=== PATIENT | female | born 1985 | race Caucasian/White ===

== ENCOUNTER → 2016-09-23 | Outpatient (CLI) | payer BC ==
[~2016-09-23] MED LIST: COD1000C; MTR600X PO; OXYC-57 PO; PRENTAB26 PO
[2016-09-23 13:38] LABS: BASO % 0.3 %; BASO ABS # 0.03 K/uL (0-0.2); COMPLETE YES; EOS % 1.8 %; HEMATOCRIT 38.2 % (37-47); IG% 0.3 %; LYMPH % 20.9 %; LYMPH ABS # 2.42 K/uL (1.2-3.4); MEAN CELL VOLUME 80.4 fL (80-100); MEAN CORPUSCULAR HEMOGLOBIN 27.8 pg (25-34); MEAN CORPUSCULAR HGB CONC 34.6 g/dl (32-36); MEAN PLATELET VOLUME 10.2 fL (7.4-10.4); MONO % 5.3 %; NEUT % 71.4 %; PLATELET COUNT 291 K/uL (130-400); RED BLOOD COUNT 4.75 M/uL (4.2-5.4); WHITE BLOOD COUNT 11.57 K/uL (4.8-10.8)
[2016-09-23 13:49] LABS: URINE APPEARANCE CLEAR (CLEAR); URINE BILIRUBIN NEG (NEG); URINE COLOR YELLOW; URINE NITRITE NEG (NEG); UROBILINOGEN NEG (NEG)
[2016-09-23 13:56] LABS: MANUAL MICROSCOPIC REQUIRED? NO; REVIEW REQ? NO
[2016-09-27 01:40] LABS: CHLAMYDIA TRACH RNA*** NOT DETECTED (NOT DETECTED); GC (NEIS GONORRHOEAE)RNA** NOT DETECTED (NOT DETECTED)
== END | disposition home or self-care (01) ==
LOC: C.LAB1850 12:22
PROVIDERS: ATTEND Obstetrics & Gynecology
DX: Z34.01 Encounter for supervision of normal first pregnancy, first trimester (principal)

== ENCOUNTER → 2016-11-18 | Outpatient (CLI) | payer BC ==
[2016-11-18 18:16] LABS: GTGD 50 Grams
== END | disposition home or self-care (01) ==
LOC: C.LAB1850 15:24
PROVIDERS: ATTEND Obstetrics & Gynecology
DX: Z34.03 Encounter for supervision of normal first pregnancy, third trimester (principal)

== ENCOUNTER → 2017-02-10 | Outpatient (CLI) | payer BC ==
[2017-02-10 17:58] LABS: MANUAL MICROSCOPIC REQUIRED? NO; REVIEW REQ? NO; URINE APPEARANCE CLEAR (CLEAR); URINE BILIRUBIN NEG (NEG); URINE COLOR YELLOW; URINE EPITHELIAL CELL AUTO 0-5 /lpf (0-5); URINE NITRITE NEG (NEG); URINE SPECIFIC GRAVITY 1.007 (1.000-1.030); UROBILINOGEN NEG (NEG)
== END | disposition home or self-care (01) ==
LOC: C.LABSPEC 17:23
PROVIDERS: ATTEND Obstetrics & Gynecology
DX: Z34.03 Encounter for supervision of normal first pregnancy, third trimester (principal)

== ENCOUNTER → 2017-02-10 | Outpatient (CLI) | payer BC ==
[2017-02-10 16:39] LABS: HEMATOCRIT 35.3 % (37-47)
[2017-02-10 18:29] LABS: GTGD 50 Grams
== END | disposition home or self-care (01) ==
LOC: C.LAB1850 15:27
PROVIDERS: ATTEND Obstetrics & Gynecology
DX: Z34.03 Encounter for supervision of normal first pregnancy, third trimester (principal)

== ENCOUNTER → 2017-02-20 | Outpatient (CLI) | payer BC | END | disposition home or self-care (01) | LOC: C.LAB1850 07:05 | PROVIDERS: ATTEND Obstetrics & Gynecology | DX: O28.1 Abnormal biochemical finding on antenatal screening of mother (principal) ==

== ENCOUNTER → 2017-04-07 | Outpatient (CLI) | payer BC | END | disposition home or self-care (01) | LOC: C.LABSPEC 17:28 | PROVIDERS: ATTEND Obstetrics & Gynecology | DX: Z34.03 Encounter for supervision of normal first pregnancy, third trimester (principal) ==

== ENCOUNTER 2017-04-20 04:01 | Inpatient (IN) | payer BC ==
[2017-04-20] VITALS (7 sets, daily range): BP systolic 101–113; BP diastolic 63–72; PULSE 98–101; TEMP 36.5–36.6; O2SAT 95–99; Ht 167.6 cm; Wt 89.8 kg
[~2017-04-20] VITALS: Ht 167.6 cm; Wt 89.8 kg
[2017-04-20] MEDS ORDERED: PRENTAB26 PO (04:22)
[2017-04-20] MEDS ORDERED: COD1000C (04:22)
[2017-04-20] MEDS ORDERED: LACTATED RINGER'S 1000ML 1,000 ML IV SCH ×2 (04:27→16:14)
[2017-04-20 05:30] LABS: HEMATOCRIT 41.5 % (37-47); MEAN CELL VOLUME 81.5 fL (80-100); MEAN CORPUSCULAR HEMOGLOBIN 26.9 pg (25-34); MEAN PLATELET VOLUME 11.3 fL (7.4-10.4); PLATELET COUNT 187 K/uL (130-400); RED BLOOD COUNT 5.09 M/uL (4.2-5.4); WHITE BLOOD COUNT 11.82 K/uL (4.8-10.8)
[2017-04-20] MEDS ORDERED: LACTATED RINGER'S 1000ML 500 ML IV PRN ×3 (06:51→16:03)
[2017-04-20] MEDS: LACTATED RINGER'S 1000ML 1,000 ML IV PRN ×2 (06:56→14:44)
[2017-04-20] MEDS ORDERED: OXYTOCIN 30 UNITS/500ML NSS IV PRN (07:00)
[2017-04-20] MEDS ORDERED: FENTANYL CITRATE INJ 50 MCG/1 ML 2 ML VIAL ONE ×2 (07:36→14:54)
[2017-04-20] MEDS ORDERED: BUPIVACAINE 0.25% 30 ML VIAL ONE (07:36)
[2017-04-20] MEDS ORDERED: FENTANYL 2MCG/ML ROPIV 1.25MG/ML 100ML BAG EPI ONE (07:36)
[2017-04-20] MEDS ORDERED: EpHEDrine SULFATE INJ 50 MG/ML AMP ONE (07:36)
[2017-04-20] MEDS ORDERED: NALOXONE HCL INJ 1 MG in SODIUM CHLORIDE 0.9% 1000ML 1,000 ML IV PRN ×8 (08:21→16:03)
[2017-04-20] MEDS ORDERED: FENTANYL 2MCG/ML ROPIV 1.25MG/ML 100ML BAG EPI PRN (08:30)
[2017-04-20] MEDS ORDERED: PROMETHAZINE HCL INJ 25 MG in SODIUM CHLORIDE 0.9% 50ML 50 ML IV PRN ×5 (08:30→16:15)
[2017-04-20] MEDS ORDERED: NALOXONE HCL INJ 0.4 MG/1 ML VIAL/CARP IV PRN (08:30)
[2017-04-20] MEDS ORDERED: DiphenhydrAMINE HCL 50 MG/ML VIAL IV PRN ×3 (08:30→16:15)
[2017-04-20] MEDS ORDERED: EpHEDrine SULFATE INJ 50 MG/ML AMP IV PRN ×2 (08:30→16:15)
[2017-04-20] MEDS ORDERED: NALBUPHINE HCL INJ 10 MG/ML AMP IV PRN ×2 (08:30→16:15)
[2017-04-20] MEDS ORDERED: ONDANSETRON INJ 2 MG/ML 2 ML VIAL IV PRN ×2 (08:30→16:15)
[2017-04-20] MEDS ORDERED: CITRIC ACID/SODIUM CITRATE 15 ML UDC ONE (14:53)
[2017-04-20] MEDS ORDERED: OXYTOCIN INJ 10 UNITS/ML VIAL ONE ×2 (14:55→15:43)
[2017-04-20] MEDS ORDERED: CITRIC ACID/SODIUM CITRATE 15 ML UDC PO ONE (15:00)
[2017-04-20] MEDS ORDERED: CEFAZOLIN IV 2,000 MG in DEXTROSE 5% 50ML 50 ML IV SCH (15:15)
[2017-04-20] MEDS ORDERED: LIDOCAINE/EPINEPHRINE 2% 1:200,000 20 ML SDV ONE (15:29)
[2017-04-20] MEDS ORDERED: MoRPHine SULFATE PF 1 MG/ML 10 ML AMP/VIAL ONE (15:32)
[2017-04-20] MEDS ORDERED: ONDANSETRON INJ 2 MG/ML 2 ML VIAL ONE (15:39)
[2017-04-20] MEDS ORDERED: PROMETHAZINE HCL INJ 25 MG/ML 1 ML VIAL ONE (15:39)
[2017-04-20] MEDS ORDERED: MIDAZOLAM HCL 1 MG/ML 2ML VIAL ONE (15:41)
[2017-04-20] MEDS ORDERED: PHENYLEPHRINE 100MCG/ML 5ML SYR ONE (15:46)
[2017-04-20] MEDS ORDERED: SODIUM CHLORIDE 0.9% 1000ML 1,000 ML IV PRN (16:03)
[2017-04-20] MEDS ORDERED: NALOXONE HCL INJ 0.08 MG in SYRINGE 1.8 ML IV PRN (16:03)
--- NOTE | 2017-04-20 16:11 | Anesthesia Procedure Note ---
Anesthesia Epidural Removal Nt Date & Time Apr 20, 2017 at 16:11 Vital Signs Pain Intensity: 0.0 Notes Mental Status: alert / awake / arousable, participated in evaluation Nausea / Vomiting: adequately controlled Pain: adequately controlled Airway Patency, RR, SpO2: stable & adequate BP & HR: stable & adequate Hydration State: stable & adequate Neuraxial Anesthesia: was administered Anesthetic Complications: no major complications apparent, pt satisfied with anesthetic care Epidural: removed without complications, with tip intact
--- NOTE | 2017-04-20 16:11 | Anesthesiology Progress Note ---
Anesthesia Post Op Note Date & Time Apr 20, 2017 at 16:11 Vital Signs Pain Intensity: 0.0 Notes Mental Status: alert / awake / arousable, participated in evaluation Pt Amnestic to Procedure: No Nausea / Vomiting: adequately controlled Pain: adequately controlled Airway Patency, RR, SpO2: stable & adequate BP & HR: stable & adequate Hydration State: stable & adequate Neuraxial Anesthesia: was administered, sensory block is resolving Anesthetic Complications: no major complications apparent
[2017-04-20] MEDS ORDERED: NALOXONE HCL 0.4 MG/1 ML VIAL/CARP IV PRN (16:15)
[2017-04-20] MEDS ORDERED: BENZOCAINE 20% AER SPR 82.5 GM CAN EXT PRN (16:15)
[2017-04-20] MEDS ORDERED: SUPERCREAM 0.870 % 15GM JAR EXT PRN (16:15)
[2017-04-20] MEDS ORDERED: NO NARCOTICS OR SEDATIVES SCH (16:15)
[2017-04-20] MEDS ORDERED: MoRPHine SULFATE PF 1 MG/ML 10 ML AMP/VIAL EPI PRN (16:15)
[2017-04-20] MEDS ORDERED: KETOROLAC TROMETHAMINE 30 MG/ML VIAL IV. PRN (16:15)
[2017-04-20] MEDS ORDERED: HYDROCORTISONE ACETATE 25 MG SUPP PR PRN (16:15)
[2017-04-20] MEDS ORDERED: LANOLIN OINT EXT PRN ×2 (16:15)
[2017-04-20] MEDS ORDERED: OXYTOCIN INJ 30 UNITS in LACTATED RINGER'S 1000ML 1,000 ML IV SCH (17:00)
[2017-04-20] MEDS: DOCUSATE SODIUM 100 MG CAP PO SCH (20:46)
[2017-04-20] MEDS: SIMETHICONE 80 MG CHEW PO SCH (20:46)
[2017-04-21] VITALS (13 sets, daily range): BP systolic 95–104; BP diastolic 59–68; PULSE 94–102; TEMP 36.7–37; O2SAT 96–99
--- NOTE | 2017-04-21 00:03 | OPERATIVE REPORT ---
DATE OF OPERATION: 04/20/2017 PREOPERATIVE DIAGNOSES: 1. Zaman intrauterine at 38 and 3/7 weeks. 2. Premature rupture of membranes with induction of labor. 3. Failure to descend. 4. Group B strep negative. 5. Difficult extraction. POSTOPERATIVE DIAGNOSES: Same. PROCEDURE: Primary low transverse section with vertical extension to a T incision and a left cervical extension. SURGEON: Janessa Holbrook MD. ASSIST: MS3 and RN Dulce Vazquez. ESTIMATED BLOOD LOSS: 700 FINDINGS: in direct occiput posterior position with a fundal posterior placenta. Ovaries normal bilaterally. Approximately 3-4 cm paratubal cyst on the left which was drained of clear fluid. SPECIMEN: Cord blood, placenta. COMPLICATIONS: None. DISPOSITION: Stable to the recovery room. DESCRIPTION: Fang is a 31-year-old G1, P0 who was admitted by my partner Dr. Cates with premature rupture of membranes and slow onset of labor, requiring augmentation with Pitocin. The patient reached complete dilation with an urge to push and was coached through her second stage. Despite 3 hours of exceptional maternal pushing effort, the patient was unable to bring the head down below +1 station, and on exam after 3 hours of pushing, it was very easy to displace the head upward, out of the pelvis. The patient elected to proceed to delivery for failure to descend with suspected CPD and malpresentation. The patient was brought to the operating room, placed on the table in the supine position with a leftward tilt, prepped and draped in standard sterile fashion, and a hard timeout was taken prior to proceeding. A Pfannenstiel incision was created and carried sharply down to the fascia which was carried out laterally with Pacheco scissors. The fascia was elevated using Pema clamps and sharply and bluntly dissected off the underlying rectus. The midline of the rectus was bluntly and the peritoneum was bluntly entered. This entry point was then extended using lateral pressure from the surgeon's hand. A bladder blade was introduced and a bladder flap was created. A lower uterine transverse incision was then made. As the fetus was in the direct occiput posterior presentation, the hands and arms were directly under the hysterotomy and these immediately presented through the hysterotomy. These were gently replaced in the uterus and my hand was introduced down over the head; however, as the arms continued to return to protruding through the hysterotomy, elevation of the head was difficult. A nurse with a sterile glove was introduced from below to put upward pressure on the head through the vagina; however, we remained unable to displace the head upward sufficiently to allow delivery of the head through the hysterotomy. For this reason, I then changed my approach and used bandage scissors to create a uterine T incision and then grasped both feet. The feet were delivered through the hysterotomy, followed by the sacrum while I used my right hand to gently guide the head upward into the fundus effectively creating an internal podalic version and delivering the fetus in a breech extraction manner. Once the fetus was delivered, the cord was doubly clamped and cut. With just a few breaths worth of resuscitation, the then began to make spontaneous crying and respirations and was noted to move all 4 extremities. Apgars of 8 and 9 were ultimately assigned. The cord was clamped to create suction for extracting cord gases and the placenta was then removed manually. The uterus was exteriorized and cleared of all clot and debris with a dry lap sponge. The bladder retractor was then re-placed. The angles of the hysterotomy and the vertical incision were identified with Allis clamps and a left cervical extension was identified. Repair began by closure of the left cervical extension using 0 Vicryl suture in a running locked manner. The vertical extension was then closed using 0 Vicryl suture in a running locked manner and what remained was then a standard transverse hysterotomy which was then closed in the usual running locked manner with Vicryl suture. A small hematoma was noted at the left angle and a [id number] of Vicryl was placed to compress this with success. The uterus was then flexed forward and irrigation was carried out in the posterior cul-de-sac. The ovaries were noted to be normal. There was a 4 cm clear filled paratubal cyst on the left side which was lanced and drained of fluid to decompress. The uterus was then re-placed into the abdomen. The lateral gutters were cleared of clot and debris gently. Attention was then returned to the hysterotomy which having been allowed to sit for several minutes as the gutters were cleared, showed itself to be hemostatic without re-formation of the hematoma. Satisfied that the uterine repair was complete, I removed all instruments, grasped the angle of the fascia with the Peam and repaired the fascial opening using 1 Vicryl suture in a running nonlocked manner. At the completion of fascial closure, the fascia was examined and found to be free of any defect. The subcutaneous tissue was copiously irrigated and gently reapproximated using 3-0 chromic suture. The skin was closed using 4-0 Monocryl and a Dermabond dressing was applied. The Tariq was noted to be draining blood stained urine at the end of the procedure. Of note, the bladder was clearly identified and well mobilized inferior to the working sites, and I feel confident that the blood stained urine is due to lower uterine segment trauma from the attempts to deliver this child and does not represent a sharp or direct bladder injury. The patient is currently in her recovery room having tolerated the procedure well. I attest to the content of the Intraoperative Record and any orders documented therein. Any exception s are noted below.
--- NOTE | 2017-04-21 06:43 | Medical Student: [facility] ---
Med Student DELI MANAGER Progress Nt Date of Service Apr 21, 2017. Subjective conversation w/ patient Ambulation: limited ambulation (has not gotten out of bed yet) Voiding: mcdonough catheter in place Passing Gas: No Diet Tolerance: Clear Liquids Lochia: Small Feeding Type: Breast Feeding Notes: Toradol for pain control Review of Systems Constitutional: No fever, No chills Respiratory: No cough, No shortness of breath Cardiac: No chest pain Abdomen: No pain, No nausea, No vomiting Objective Vital Signs Date Time Temp Pulse Resp B/P (MAP) Pulse Ox O2 Delivery O2 Flow Rate FiO2 04/21/17 05:30 17 96 04/21/17 04:40 36.7 102 18 104/62 (76) Room Air 04/21/17 04:30 17 98 04/21/17 03:30 18 98 04/21/17 02:30 17 98 04/21/17 01:30 17 97 04/21/17 00:30 17 98 04/20/17 23:50 98 Room Air 04/20/17 23:50 36.6 101 18 113/72 (86) 98 Room Air 04/20/17 23:30 20 99 04/20/17 22:30 18 96 04/20/17 21:30 18 96 04/20/17 20:30 18 95 04/20/17 19:40 36.5 98 20 101/63 (76) 97 Room Air 04/20/17 19:30 20 97 Physical Exam General Appearance: WELL-APPEARING, WD/WN, NO APPARENT DISTRESS Respiratory/Chest: chest non-tender, lungs clear, normal breath sounds, no respiratory distress Cardiovascular: regular rate, rhythm Abdomen: non tender, soft Fundus: Firm, Non-Tender, Relation to Umbilicus (at umbilicus) Incision Description: Clean, Dry & Intact Extremities: non-tender, no calf tenderness, + pedal edema still has compression device on for DVT prophylaxis Laboratory Results Last 24 Hours Test 04/21/17 06:00 Assessment and Plan Post-Op Day Number: 1 Continue Routine Care: pt is a 31 yo F POP#1 s/p section - vitals reviewed and stable - continue providing routine post c/s care - pre-op hgb 13.7, post-op hgb pending. continue to monitor for bleeding - encourage and ambulation - pain controlled wit Toradol
[2017-04-21] MEDS ORDERED: DIPHTHERIA/TETANUS/PERTUSSIS 0.5 ML SYR/VIAL IM. ONE (08:00)
--- NOTE | 2017-04-21 08:02 | Progress Note ---
Subjective Apr 21, 2017. Subjective conversation w/ patient, physical exam Ambulation: ambulating normally Voiding: mcdonough catheter in place Passing Gas: Yes Diet Tolerance: Regular Diet Lochia: Moderate Feeding Type: Breast Feeding Review of Systems Constitutional: No fever, No chills Cardiac: No chest pain Abdomen: No nausea, No vomiting Objective Vital Signs Date Time Temp Pulse Resp B/P (MAP) Pulse Ox O2 Delivery O2 Flow Rate FiO2 04/21/17 07:35 37.0 94 16 95/59 (71) 97 Room Air 04/21/17 06:30 17 98 04/21/17 05:30 17 96 04/21/17 04:40 36.7 102 18 104/62 (76) Room Air 04/21/17 04:30 17 98 04/21/17 03:30 18 98 04/21/17 02:30 17 98 04/21/17 01:30 17 97 04/21/17 00:30 17 98 04/20/17 23:50 98 Room Air 04/20/17 23:50 36.6 101 18 113/72 (86) 98 Room Air 04/20/17 23:30 20 99 04/20/17 22:30 18 96 04/20/17 21:30 18 96 04/20/17 20:30 18 95 04/20/17 19:40 36.5 98 20 101/63 (76) 97 Room Air 04/20/17 19:30 20 97 Physical Exam General Appearance: WELL-APPEARING, NO APPARENT DISTRESS Respiratory/Chest: no respiratory distress, no accessory muscle use Cardiovascular: no edema Abdomen: non tender, soft Fundus: Firm Incision Description: Clean, Dry & Intact Extremities: no calf tenderness Laboratory Results Last 24 Hours Test 04/21/17 06:57 Assessment and Plan Post-Op Day#: 1 Continue Routine Care: POD1 with T-incision for FTD. Incision discussed with patient this morning including that she will not be a candidate in the future. She expresses understanding. Clinically recovering well, routine care today.
[2017-04-21] MEDS: DOCUSATE SODIUM 100 MG CAP PO SCH ×2 (08:31→19:30)
[2017-04-21] MEDS: SIMETHICONE 80 MG CHEW PO SCH ×4 (08:31→19:31)
[2017-04-21] MEDS: PRENATAL VITAMIN TAB PO SCH (08:31)
[2017-04-21 08:43] LABS: BASO % 0.2 %; BASO ABS # 0.02 K/uL (0-0.2); COMPLETE YES; EOS % 0.6 %; HEMATOCRIT 29.4 % (37-47); IG% 0.3 %; LYMPH % 17.8 %; MEAN CELL VOLUME 82.4 fL (80-100); MEAN CORPUSCULAR HEMOGLOBIN 27.2 pg (25-34); MONO % 8.3 %; NEUT % 72.8 %; PLATELET COUNT 114 K/uL (130-400); RED BLOOD COUNT 3.57 M/uL (4.2-5.4); WHITE BLOOD COUNT 12.35 K/uL (4.8-10.8)
[2017-04-21] MEDS ORDERED: DC INTRASPINAL MORPHINE SCH (10:30)
[2017-04-21] MEDS ORDERED: OXYCODONE/ACETAMINOPHEN 5-325 TAB PO PRN (10:30)
[2017-04-21] MEDS ORDERED: MEPERIDINE HCL 50 MG/ML CARP IV PRN ×2 (10:30)
[2017-04-21] MEDS ORDERED: KETOROLAC TROMETHAMINE 30 MG/ML VIAL IV. PRN (10:30)
[2017-04-21] MEDS ORDERED: ONDANSETRON INJ 2 MG/ML 2 ML VIAL IV PRN (10:30)
[2017-04-21] MEDS: OXYCODONE/ACETAMINOPHEN 5-325 TAB PO PRN ×2 (14:02→20:18)
[2017-04-21] MEDS: IBUPROFEN 600 MG TAB PO PRN ×2 (14:02→20:17)
--- NOTE | 2017-04-22 05:58 | OB/GYN Progress Note ---
P[employer]EL[employer]ER Progress Note Date of Service Apr 22, 2017. Subjective conversation w/ patient, physical exam, chart review, lab review Ambulation: ambulating normally Voiding: no voiding problems Passing Gas: Yes Diet Tolerance: Regular Diet Lochia: Moderate Feeding Type: Breast Feeding Pain: 3-4 controlled with pain meds Review of Systems Constitutional: No fever Respiratory: No shortness of breath Cardiac: No chest pain Breast: No problem reported Abdomen: No nausea, No vomiting Female : No dysuria Objective Vital Signs Date Time Temp Pulse Resp B/P (MAP) Pulse Ox O2 Delivery O2 Flow Rate FiO2 04/21/17 23:20 Room Air 04/21/17 15:30 Room Air 04/21/17 11:45 36.8 98 20 104/68 (80) 97 Room Air 04/21/17 10:00 16 98 04/21/17 09:00 16 99 04/21/17 08:00 16 99 04/21/17 08:00 99 Room Air 04/21/17 07:35 37.0 94 16 95/59 (71) 97 Room Air 04/21/17 06:30 17 98 Physical Exam General Appearance: WELL-APPEARING Respiratory/Chest: lungs clear, normal breath sounds, no respiratory distress Cardiovascular: regular rate, rhythm Abdomen: normal bowel sounds, non tender, soft Fundus: Firm, Relation to Umbilicus (3 finger breaths below) Incision Description: Clean, Dry & Intact Extremities: non-tender, normal inspection, no pedal edema Laboratory Results Last 24 Hours Test 04/21/17 06:57 White Blood Count 12.35 K/uL Red Blood Count 3.57 M/uL Hemoglobin 9.7 g/dL Hematocrit 29.4 % Mean Corpuscular Volume 82.4 fL Mean Corpuscular Hemoglobin 27.2 pg Mean Corpuscular Hemoglobin Concent 33.0 g/dl Platelet Count 114 K/uL Mean Platelet Volume 11.0 fL Neutrophils (%) (Auto) 72.8 % Lymphocytes (%) (Auto) 17.8 % Monocytes (%) (Auto) 8.3 % Eosinophils (%) (Auto) 0.6 % Basophils (%) (Auto) 0.2 % Neutrophils # (Auto) 8.99 K/uL Lymphocytes # (Auto) 2.20 K/uL Monocytes # (Auto) 1.03 K/uL Eosinophils # (Auto) 0.07 K/uL Basophils # (Auto) 0.02 K/uL RDW Standard Deviation 44.2 fL RDW Coefficient of Variation 14.7 % Immature Granulocyte % (Auto) 0.3 % Immature Granulocyte # (Auto) 0.04 K/uL Medications Current Inpatient Medications Medications (Trade) Dose Ordered Sig/Abhi Route Start Time Stop Time Status Last Admin Dose Admin Oxytocin (Pitocin IV) 30 units UD PRN IV 04/20/17 07:00 05/20/17 06:59 04/20/17 07:22 30 UNITS Lactated Ringer's 500 ml @ 999 mls/hr Q31M PRN IV 04/20/17 06:51 05/20/17 06:50 Lactated Ringer's 1,000 ml @ 125 mls/hr Q8H IV 04/20/17 16:14 05/20/17 16:13 Ketorolac Tromethamine (Toradol Inj) 30 mg Q6H PRN IV. 04/21/17 10:30 04/25/17 10:29 Meperidine HCl (Demerol Inj) 50 mg Q4H PRN IV 04/21/17 10:30 05/05/17 10:29 Meperidine HCl (Demerol Inj) 75 mg Q4H PRN IV 04/21/17 10:30 05/05/17 10:29 Oxycodone/ Acetaminophen (Percocet 5-325mg Tab) 1 tab Q4H PRN PO 04/21/17 10:30 05/05/17 10:29 04/21/17 20:18 1 TAB Oxycodone/ Acetaminophen (Percocet 5-325mg Tab) 2 tab Q4H PRN PO 04/21/17 10:30 05/05/17 10:29 Ibuprofen (Motrin Tab) 600 mg Q4H PRN PO 04/20/17 16:15 05/20/17 16:14 04/21/17 20:17 600 MG Promethazine HCl 25 mg/Sodium Chloride 51 ml @ 204 mls/hr Q4H PRN IV 04/20/17 16:15 05/20/17 16:14 Ondansetron HCl (Zofran Inj) 4 mg Q4H PRN IV 04/21/17 10:30 05/21/17 10:29 Prenat Multivit/ Staff Midwife/Iron/Folic Ac ( Vitamin Tab) 1 tab DAILY PO 04/21/17 08:00 05/21/17 07:59 04/21/17 08:31 1 TAB Docusate Sodium (coLACE CAP) 100 mg BID PO 04/20/17 20:00 05/20/17 19:59 04/21/17 19:30 100 MG Cocaine HCl (Supercream 0.870% Cr) BID PRN EXT 04/20/17 16:15 05/04/17 16:14 Lanolin (Lanolin Oint) PRN PRN EXT 04/20/17 16:15 05/20/17 16:14 Hydrocortisone Acetate (Anusol Hc Supp) 25 mg BID PRN AR 04/20/17 16:15 05/20/17 16:14 Benzocaine (Dermoplast Aero Spr) 1 appln PRN PRN EXT 04/20/17 16:15 05/20/17 16:14 Simethicone (Mylicon Chew Tab) 80 mg QID PO 04/20/17 17:00 05/20/17 16:59 04/21/17 19:31 80 MG Diphenhydramine HCl (Benadryl Cap) 25 mg QID PRN PO 04/20/17 16:15 05/20/17 16:14 Diphenhydramine HCl (Benadryl Inj) 25 mg QID PRN IV 04/20/17 16:15 05/20/17 16:14 Assessment and Plan Post-Op Day Number: 2 Continue Routine Care: A/P: This is a 31 y/o female, , POD# 2 s/p with T incision for FTD. She is ambulating and clinically stable. Plan: - Vitals signs are reviewed and WNL (Tmax 36.8 ) - Last Hgb is 9.7 (04/21) - Blood type A+, GBS neg, Rubella Immune - Routine post operative care - Encourage ambulation, monitor and control pain with medication as needed, continue with regular diet as tolerated and monitor lochia - Stool softeners and sitz bath recommended - Encourage breast feeding and educate about breast feeding Resident Physician Supervision Note: I was present with Dr. Gandara during the history and exam. I discussed the case with the resident and agree with the findings and plan as documented in the note. Any exceptions or clarifications are listed here: POD#2 doing well. Continue routine postop care. Anticipate discharge tomorrow. Documented By: Doreen Mcgowan Resident Involvement: Resident Care Provided Care Provided: OB Delivery
[2017-04-22] MEDS: IBUPROFEN 600 MG TAB PO PRN ×3 (07:49→23:56)
[2017-04-22] MEDS: SIMETHICONE 80 MG CHEW PO SCH ×4 (07:50→21:33)
[2017-04-22] MEDS: OXYCODONE/ACETAMINOPHEN 5-325 TAB PO PRN ×3 (07:50→23:56)
[2017-04-22] MEDS: PRENATAL VITAMIN TAB PO SCH (07:50)
[2017-04-22] MEDS: DOCUSATE SODIUM 100 MG CAP PO SCH ×2 (07:52→21:33)
--- NOTE | 2017-04-22 08:00 | Discharge Instructions ---
Discharge Instructions Date of Service Apr 22, 2017. Admission Reason for Admission: Check Labor Discharge Discharge Diagnosis / Problem: after delivery Discharge Goals Goal(s): Routine recovery after delivery Medications Continue Dispensed Medications: supercream, dermaplast, tucks, lansinoh Activity Recommendations Activity Limitations: per Instructions/Follow-up section . Instructions / Follow-Up Instructions / Follow-Up ACTIVITY RECOMMENDATIONS: * Gradual return to full activity over the next 2-3 weeks. * No lifting - nothing heavier than baby over the next 2-3 weeks. * Do not engage in vigorous exercise, sexual activity or sports until cleared by your physician. * Do not drive or operate any motorized equipment until cleared by your physician. * You may shower/bathe daily. MEDICATIONS: For discomfort or pain, you may use Acetaminophen (Tylenol), Ibuprofen (Advil), or Naproxen (Aleve) following the package directions. For constipation you may use Colace following the package directions. BREAST CARE: If you are not breast feeding: * Wear a supportive bra 24 hours a day for one to two weeks. * Avoid stimulating your breasts and nipples as much as possible during the first few weeks after delivery. * When taking a shower, have the warm water hit your back, not breasts. * When your breasts feel full, apply ice packs. Usually three to four times a day helps ease the discomfort. * Take a mild pain medication (Tylenol / Motrin) when you are uncomfortable. If breast feeding: * Use breast milk to lubricate nipples. Lansinoh cream may be used for sore nipples. You do not need to remove cream prior to breast feeding. If using a different brand of cream, check the label for directions regarding removal of cream prior to nursing. * Wear a supportive bra. * If having problems with breasts or breast feeding, call a bridal stylist sales consultant or your health care provider. SPECIAL CARE INSTRUCTIONS: When you are discharged from the hospital, it is important for you to follow the instructions listed below: * During the first week at home, you should be able to care for yourself and your baby. In addition, the usual light household activities are encouraged. * Limit your activities to the way you feel. Do not try to clean the house or move furniture. Be sensible. * If you actively engage in sports and have done so up until the time of your delivery, you may resume these activities as soon as you feel able. This may take up to one month or even longer. Use good judgment. * Continue to take your vitamins for at least six weeks after the of your baby. * Your diet need not be limited unless you were on a special diet before your delivery. Breast-feeding mothers need around 2500 calories per day and at least 64-80 ounces of fluid per day (8 to 10 glasses). * You should eat foods from the four major food groups. Crash diets or fad diets are to be avoided. Eating lean meats, fresh fruits and vegetables, low-fat dairy products, high fiber foods and a regular exercise program, will help you get back to your pre- weight without putting your health at risk. * Constipation is sometimes a problem after delivery. Take a mild laxative as needed. If breast feeding, Milk of Magnesia is acceptable to use. You may use a suppository or Fleets enema. * A daily shower or tub bath is suggested. Wash incision daily with warm soapy water and pat dry. It doesn't need to be covered unless drainage is present. * A bloody vaginal discharge will usually continue until around four weeks . A small amount of bleeding may continue for as long as six weeks. Vaginal discharge changes from the bright red bleeding after delivery to pink then brownish and finally yellowish-pink before becoming white and disappearing. * Bleeding may increase with activity. Your first period may come in 4-8 weeks. If you are breast feeding, your period may be delayed even longer. * Pelzer (sex) can begin whenever both you and your partner feel comfortable and do not have any form of genital infection. It is recommended that you wait at least six weeks for internal and external healing to occur. If you have questions, please talk to your health care practitioner. A condom should be used to prevent infection and . * Foreplay, gentle intercourse and lubrication is very important the first several times to prevent pain. A water-based lubricant such as K-Y jelly or Astroglide may be used. * If you have RH negative blood and your baby is RH positive, you will receive RHOGAM by injection prior to discharge. The nurse will give you a card to keep with you that has the date and place that you received RHOGAM after delivery. * During your care, you had a Rubella screen done to check for the presence of rubella antibodies in your blood. If your test was negative, you will receive a Rubella vaccine prior to discharge. This vaccine may cause a fever, soreness at the injection site and flu-like symptoms. If these symptoms persist, notify your health care practitioner. is not advised for one month after a Rubella vaccine. * Verbalizes understanding of car seat law as reviewed with patient nursing. * Car Seat hand-out given and reviewed with patient by nursing. * Shaken baby information reviewed with patient by nursing. Call you doctor if: * Heavy bleeding (saturating several pads an hour) or passing clots the size of your fist. * A fever >101 degrees F (38.3 degrees C) on two occasions four hours apart and /or chills. * Unusual pain in the pelvic or vaginal areas. * Call the doctor for any increased redness, drainage or swelling around the incision and any pain unrelieved by prescribed pain medication. * "Baby Blues" lasting longer than two weeks. If you have any questions or concerns, call your health care practitioner at . FOLLOW UP VISIT: * Please call the office at to schedule a 6 week examination. It is important you keep this appointment. It is important for you to make arrangements for either yearly or twice yearly check-ups thereafter. Current Hospital Diet Patient's current hospital diet: Regular OB Diet Discharge Diet Recommended Diet: Regular Diet Procedures Procedures Performed: Primary ceasearen section with the of a live male child at 1523. Pending Studies Studies pending at discharge: no Medical Emergencies . Who to Call and When: Medical Emergencies: If at any time you feel your situation is an emergency, please call [phone] immediately. . Non-Emergent Contact Non-Emergency issues call your: [facility] . . "Provider Documentation" section prepared by Moises Gandara. . VTE Core Measure Inpt VTE Proph given/why not?: SCD's
[2017-04-22 15:30] VITALS: BP 125/83; PULSE 80; TEMP 36.6
[2017-04-22 23:45] VITALS: BP 120/76; PULSE 94; TEMP 36.7
[2017-04-23 07:30] VITALS: BP 103/68; PULSE 93; TEMP 36.7
[2017-04-23] MEDS: SIMETHICONE 80 MG CHEW PO SCH (08:26)
[2017-04-23] MEDS: DOCUSATE SODIUM 100 MG CAP PO SCH (08:26)
[2017-04-23] MEDS: PRENATAL VITAMIN TAB PO SCH (08:26)
--- NOTE | 2017-04-23 08:30 | Progress Note ---
Subjective Apr 23, 2017. Subjective conversation w/ patient, physical exam, chart review, lab review Voiding: no voiding problems Diet Tolerance: Regular Diet Feeding Type: Breast Feeding Objective Vital Signs Date Time Temp Pulse Resp B/P (MAP) Pulse Ox O2 Delivery O2 Flow Rate FiO2 04/22/17 23:45 Room Air 04/22/17 23:45 36.7 94 18 120/76 (91) Room Air 04/22/17 15:30 36.6 80 20 125/83 (97) Room Air 04/22/17 15:30 Room Air Physical Exam General Appearance: WELL-APPEARING Respiratory/Chest: lungs clear Abdomen: non tender Fundus: Firm Incision Description: Clean, Dry & Intact Extremities: no calf tenderness Assessment and Plan Post-Op Day#: 3 Continue Routine Care: home
[2017-04-23] MEDS ORDERED: MTR600X PO (08:31)
[2017-04-23] MEDS ORDERED: OXYC-57 PO (08:31)
[2017-04-23] MEDS: IBUPROFEN 600 MG TAB PO PRN (09:39)
[2017-04-23] MEDS: OXYCODONE/ACETAMINOPHEN 5-325 TAB PO PRN (09:39)
[2017-04-23 13:54] VITALS: BP_DIAS 68; PULSE 93; TEMP 36.7
--- NOTE | 2017-05-04 20:57 | Discharge Summary ---
Discharge Summary Date of Service May 04, 2017. Discharge Summary Admission Date: Apr 20, 2017 at 04:33 Discharge Date: Apr 23, 2017 Discharge Disposition: Home Principal Diagnosis: Delivery of viable infant Medication Reconciliation New Medications: Ibuprofen (Ibuprofen) 600 Mg Tab 600 MG PO Q4H PRN for Pain, NAVARRETE, Cramping, or Fever, #20 TAB Oxycodone/Acetaminophen 5MG/325MG (Percocet 5MG/325MG) Tab 1 TAB PO Q4H PRN for Pain - Pain Scale 1-5, #30 TAB PAIN Continued Medications: Cod Liver Oil (Cod Liver Oil 1000 mg) 1 Cap Cap Multivit/Min/Iron/Fol Ac/Pren ( Vitamin) Tab 1 TAB PO DAILY, TAB None (Patient States No Home Meds) . 0 Refills Hospital Course Total Time Spent: Less than 30 minutes This includes examination of the patient, discharge planning, medication reconciliation, and communication with other providers. Discharge Instructions Please refer to the electronic Patient Visit Report (Discharge Instructions) for additional information.
== END 2017-04-23 13:45 | disposition home health service (06) | DRG 766 ==
LOC: C.OPB 04:01 → C.LD 04:01 → C.OPB 04:33 → C.OBG 18:42
PROVIDERS: ADMIT Obstetrics & Gynecology; ATTEND Obstetrics & Gynecology
PROC: 0U960ZZ Drainage of Left Fallopian Tube, Open Approach (ICD-10-PCS; principal; 2017-04-20 14:52)
PROC: 10D00Z1 Extraction of Products of Conception, Low, Open Approach (ICD-10-PCS; principal; 2017-04-20 14:52)
DX: O42.02 Full-term premature rupture of membranes, onset of labor within 24 hours of rupture (principal); Z37.0 Single live birth; Z3A.38 38 weeks gestation of pregnancy; N83.8 Other noninflammatory disorders of ovary, fallopian tube and broad ligament; O66.40 Failed trial of labor, unspecified; O26.893 Other specified pregnancy related conditions, third trimester

== ENCOUNTER → 2017-06-06 | Outpatient (CLI) | payer BC | END | disposition home or self-care (01) | LOC: C.LAB1850 08:14 | PROVIDERS: ATTEND Obstetrics & Gynecology | DX: O24.410 Gestational diabetes mellitus in pregnancy, diet controlled (principal); Z3A.00 Weeks of gestation of pregnancy not specified ==

== ENCOUNTER 2020-08-03 07:32 | Inpatient (IN) ==
[~2020-08-03 07:32] MED LIST changes: +BETAMETH SOD PHOS/ACETATE IA 6 MG/ML ONE; +CITRIC ACID/SODIUM CITRATE 15 ML UDC PO SCH; -COD1000C; +LACTATED RINGER'S 1,000 ML IV SCH; -MTR600X PO; -OXYC-57 PO; -PRENTAB26 PO; +ceFAZolin 3,000 MG in DEXTROSE 5% 50 ML IV SCH
[2020-08-03 07:56] LABS: Basophils # (auto) 0.01 K/uL (0-0.2); Basophils % (auto) 0.1 %; Eosinophils # (auto) 0.01 K/uL (0-0.5); Eosinophils % (auto) 0.1 %; Hematocrit (blood only) 36.8 % (37-47); Hemoglobin 11.7 g/dL (12.0-16.0); Immature Granulocytes # (auto) 0.29 K/uL (0.00-0.02); Immature Granulocytes % (auto) 1.9 %; Lymphocytes # (auto) 2.07 K/uL (1.2-3.4); Lymphocytes % (auto) 13.5 %; Mean Corpuscular Hemoglobin 26.8 pg (25-34); Mean Corpuscular Hgb Conc 31.8 g/dL (32-36); Mean Corpuscular Volume 84.2 fL (80-100); Mean Platelet Volume 10.5 fL (7.4-10.4); Monocytes # (auto) 0.92 K/uL (0.11-0.59); Neutrophils % (auto) 78.4 %; Nucleated RBC # (auto) 0.02 K/uL (0-0); Nucleated RBC % (auto) 0.1 %; Platelet Count 192 K/uL (130-400); RDW Coefficient of Variation 14.4 % (11.5-14.5); RDW Standard Deviation 43.9 fL (36.4-46.3); Red Blood Count 4.37 M/uL (4.2-5.4)
--- NOTE | 2020-08-03 08:30 | Anesthesiology Consultation ---
Date of Service August 03, 2020 Assessment & Plan (1) Encounter for pre-operative examination: Chart Review Chart Review: Acceptable Risk for Surgery History Surgery Operation Date: 08/03/20 09:30 Proposed Procedures p Section in LD - Janessa Holbrook MD Height/Weight Height: 5 ft 6 in Weight: 90.718 kg Allergies Allergy/AdvReac Type Severity Reaction Status Date / Time mold Allergy Mild sinus Verified 07/31/20 08:54 congestion ragweed pollen Allergy Mild sinus Verified 07/31/20 08:54 congestion Dust Allergy Mild sinus Uncoded 07/29/20 15:45 congestion Medications Home Medications Medication Instructions Recorded Confirmed Last Taken prenat.vits,victor hugo,[id number] 1 tab PO QAM 10/24/19 07/31/20 Unknown acetone (urine) test #50 ea 03/18/20 07/31/20 Unknown blood sugar diagnostic #150 ea 03/18/20 07/31/20 Unknown lancets 33 gauge #150 ea 03/18/20 07/31/20 Unknown omega-3 fatty acids-fish oil [Fish 1 cap PO QAM 07/29/20 07/31/20 Unknown Oil Extra Strength] Past Medical History Medical History Asthma as a child. no problems currently Gestational diabetes managed by diet Spontaneous at 7 weeks Past Family History Family History Father Colorectal cancer Grandfather (Paternal) Colorectal cancer Other No family history of adverse response to anesthesia Past Surgical History Surgical History S/P section Social History Smoking Status: Never smoker Do You Dip or Chew Tobacco: No Hx Alcohol Use: No Hx Substance Use: No substance use type: does not use Physical Exam Vital Signs Last Vital Signs Pulse 102 H 08/03/20 07:52 BP 115/60 08/03/20 07:52 Testing Laboratory Results 08/03/20 07:41
[2020-08-03] MEDS ORDERED: MoRPHine SULFATE PF 1 MG/ML 10 ML AMP/VIAL ONE (08:37)
--- NOTE | 2020-08-03 10:52 | History & Physical Bridge Note ---
Date of Service August 03, 2020 History & Physical Bridge Note I have examined the patient, reviewed the History & Physical and in the interval since the performance of the History & Physical I have noted the following changes of clinical significance: no changes noted
[2020-08-03] MEDS ORDERED: ONDANSETRON INJ 2 MG/ML 2 ML VIAL ONE (10:55)
[2020-08-03] MEDS ORDERED: PROPOFOL IV EMULSION 10 MG/ML 20 ML VIAL IV ONE (10:55)
[2020-08-03] MEDS ORDERED: METOCLOPRAMIDE HCL INJ 5 MG/ML 2 ML VIAL ONE (10:55)
[2020-08-03] MEDS ORDERED: OXYTOCIN 10 UNITS/ML VIAL ONE (10:55)
[2020-08-03] MEDS ORDERED: ePHEDrine sulfate 50 MG/ML SYR ONE (12:31)
[2020-08-03] MEDS ORDERED: PHENYLEPHRINE 100MCG/ML 5ML SYR ONE (12:37)
[2020-08-03] MEDS ORDERED: ePHEDrine sulfate 50 MG/ML AMP IV PRN (12:41)
[2020-08-03] MEDS ORDERED: NALOXONE HCL 1 MG in SODIUM CHLORIDE 0.9% 1000ML 1,000 ML IV PRN (12:41)
[2020-08-03] MEDS ORDERED: LACTATED RINGER'S 500 ML IV PRN (12:41)
[2020-08-03] MEDS ORDERED: PROMETHAZINE HCL 12.5 MG in SODIUM CHLORIDE 0.9% 50 ML IV PRN (12:41)
[2020-08-03] MEDS ORDERED: MoRPHine SULFATE PF 1 MG/ML 10 ML AMP/VIAL INT SPINAL ONE (12:41)
[2020-08-03] MEDS ORDERED: NALOXONE HCL 0.08 MG in SYRINGE 1.8 ML IV PRN (12:41)
[2020-08-03] MEDS ORDERED: KETOROLAC 30 MG/ML VIAL IV PRN (12:41)
[2020-08-03] MEDS ORDERED: diphenhydrAMINE 50 MG/ML VIAL IV PRN (12:41)
[2020-08-03] MEDS ORDERED: MEPERIDINE HCL 25 MG/ML CARP/VIAL IV PRN (12:41)
[2020-08-03] MEDS ORDERED: ONDANSETRON INJ 2 MG/ML 2 ML VIAL IV PRN ×2 (12:41→15:06)
[2020-08-03] MEDS ORDERED: NALOXONE HCL 0.4 MG/1 ML VIAL/CARP IV PRN (12:41)
[2020-08-03] MEDS ORDERED: NO NARCOTICS OR SEDATIVES SCH (12:45)
[2020-08-03] MEDS ORDERED: SODIUM CHLORIDE 0.9% 1000ML 1,000 ML IV SCH (12:45)
[2020-08-03] MEDS ORDERED: DC INTRASPINAL MORPHINE SCH (12:45)
--- NOTE | 2020-08-03 13:14 | Operative Report ---
PG Post Operative Report Pre & Post Diagnosis Operation Date: 08/03/20 09:30 Pre-Op Diagnosis: 1. IUP at 36+ weeks 2. Previous section with T incision Post-Op Diagnosis: Same I identified the patient and participated in the time-out.: Yes Procedure Operation Date: 08/03/20 09:30 Actual Procedures p Low Transverse Section in LD with the of a live male child at 1242. - Janessa Holbrook MD Surgeon Janessa Holbrook MD Medical Data Analyst Roslyn GRIMES Estimated Blood Loss 500 Findings Consistent with Post-Op Diagnosis Specimens Placenta, cord blood Anesthesia Type Spinal Complications none Disposition Accompanied Patient To Recovery: Yes Disposition: L&D Description of Procedure The patient was brought to the operating room and placed on the table in the supine position with a leftward tilt, then prepped and draped in standard sterile fashion. A hard time out was taken prior to proceeding. A pfannensteil incision was created sharply and carried down to the fascia using bovie electrocautery. The fascia was nicked and then extended using stein scissors. The edges of the fascia were grasped with Pema clamps and elevated, then sharply and bluntly dissected off the underlying rectus. The midline of the rectus was identified and bluntly . The peritoneum was bluntly entered, and this entry was extended using pressure from the surgeon's hands. The bladder retractor was placed and the lower uterine segment was examined and found to be well developed. A bladder flap was created and the retractor was replaced behind this flap to protect the bladder. A transverse lower uterine incision was then created, with final entry to the uterine cavity made in a blunt manner with the surgeon's finger. Clear amniotic fluid was encountered. The head was elevated to the incision and delivered using mild fundal pressure. The cord was doubly clamped and cut, then the vigorous was taken to the warmer for violin teacher care. The placenta was manually extracted, then the uterus was gently exteriorized from the maternal abdomen. The cavity was cleared of clot and debris using a dry lap sponge. The angles of the incision were identified with allis clamps, and the hysterotomy was then repaired in running locked fashion using 0-vicryl suture, followed by a second imbricating layer. The tubes and ovaries were examined and found to be normal bilaterally. The posterior gutter was irrigated and cleared of clot and debris. The uterus was then gently re-internalized to the abdomen. Lateral gutters were cleared of clot and debris using a damp lap sponge, and a final exam of the hysterotomy revealed good hemostasis. The rectus muscles were allowed to reapproximate naturally. The angle of the fascia was grasped with a Pema clamp and the fascia was then repaired in running non-locked fashion with 1- vicryl suture. At the completion of repair, the fascia was examined and found to be free of any defect. The subcutaneous tissue was copiously irrigated and then reapproximated using 3-0 chromic. The skin was then closed using 4-0 monocryl in a running subcuticular fashion and a dermabond dressing was applied. The mcdonough was noted to be draining clear yellow urine as the patient was transferred back to her recovery room. I attest to the content of the Intraoperative Record and any orders documented therein. Any exceptions are noted below.
[2020-08-03] MEDS ORDERED: BENZOCAINE 20% AER SPR 82.5 GM CAN EXT PRN (15:06)
[2020-08-03] MEDS ORDERED: PROMETHAZINE HCL 25 MG in SODIUM CHLORIDE 0.9% 50 ML IV PRN (15:06)
[2020-08-03] MEDS ORDERED: DIPHTHERIA/TETANUS/PERTUSSIS 0.5 ML SYR/VIAL IM ONE (15:06)
[2020-08-03] MEDS ORDERED: MAGNESIUM HYDROXIDE SUSP 30 ML UDC PO PRN (15:06)
[2020-08-03] MEDS ORDERED: SUPERCREAM 0.870% 15 GM JAR EXT PRN (15:06)
[2020-08-03] MEDS ORDERED: HYDROCORTISONE ACETATE 25 MG SUPP PR PRN (15:06)
[2020-08-03] MEDS ORDERED: SENNA 8.6 MG TAB PO PRN (15:06)
[2020-08-03] MEDS ORDERED: LACTATED RINGER'S 1,000 ML IV SCH (15:06)
[2020-08-03] MEDS: OXYTOCIN 30 UNITS in LACTATED RINGER'S 1,000 ML IV SCH ×2 (15:50→23:45)
--- NOTE | 2020-08-03 17:17 | Anesthesiology Progress Note ---
Date of Service August 03, 2020 Anesthesia Post Procedure Vital Signs Vital Signs: Temp Pulse Resp BP Pulse Ox 08/03/20 15:41 92 H 97 08/03/20 15:38 92 H 108/56 L 08/03/20 15:36 80 98 08/03/20 15:31 72 95 08/03/20 15:29 75 108/55 L 08/03/20 15:26 75 95 08/03/20 15:21 79 94 08/03/20 15:19 75 115/59 L 08/03/20 15:16 74 97 08/03/20 15:15 36.6 C 20 08/03/20 15:11 86 98 08/03/20 15:08 90 116/64 08/03/20 15:06 78 96 08/03/20 15:01 81 98 08/03/20 14:58 77 115/59 L 08/03/20 14:56 75 96 08/03/20 14:51 78 96 08/03/20 14:48 82 119/56 L 08/03/20 14:46 74 96 08/03/20 14:45 20 08/03/20 14:41 72 96 08/03/20 14:39 72 113/56 L 08/03/20 14:36 85 98 08/03/20 14:31 87 94 08/03/20 14:29 73 90/53 L 08/03/20 14:26 85 98 08/03/20 14:21 81 97 08/03/20 14:18 92 H 114/59 L 08/03/20 14:16 99 H 96 08/03/20 14:15 20 08/03/20 14:11 94 H 98 08/03/20 14:09 100 H 110/55 L 08/03/20 14:06 101 H 99 08/03/20 14:05 20 08/03/20 14:01 95 H 97 08/03/20 13:58 102 H 120/58 L 08/03/20 13:56 98 H 97 08/03/20 13:55 20 08/03/20 13:52 93 H 117/58 L 08/03/20 13:51 92 H 98 08/03/20 13:49 121 H 43/16 L 08/03/20 13:46 84 98 08/03/20 13:45 08/03/20 13:41 82 98 08/03/20 13:39 96 H 115/57 L 08/03/20 13:36 86 98 08/03/20 13:35 20 08/03/20 13:31 81 99 08/03/20 13:29 75 108/52 L 08/03/20 13:26 85 100 08/03/20 13:25 20 08/03/20 13:21 83 98 08/03/20 13:18 80 108/52 L 08/03/20 13:16 36.6 C 83 20 100 08/03/20 08:18 36.9 C 20 08/03/20 07:52 36.9 C 102 H 20 115/60 Transfer of Care Handoff Completed per policy Notes Mental Status: alert / awake / arousable Patient Amnestic to Procedure: Yes Nausea / Vomiting: adequately controlled Pain: adequately controlled Airway Patency, RR, SpO2: stable & adequate BP & HR: stable & adequate Hydration State: stable & adequate Anesthetic Complications: no major complications apparent
[2020-08-03] MEDS: SIMETHICONE 80 MG CHEW PO SCH ×2 (17:23→20:41)
[2020-08-03] MEDS: DOCUSATE SODIUM 100 MG CAP PO SCH (20:41)
--- NOTE | 2020-08-04 04:54 | Obstetrical Progress Note ---
Date of Service <James Jackman MD - Last Filed: 08/04/20 06:22> August 04, 2020 Assessment & Plan <James Jackman MD - Last Filed: 08/04/20 06:22> (1) Previous delivery affecting : Fang is a 34 y/o female who is POD #1 following RCS at 36-3/7 WGA. - Feels well today. Pain well controlled on oral analgesics. Heat pads / abdominal binder PRN - Routine post-operative care today -- remove Tariq, OOB, ambulation, and diet progression as tolerated - After discharge will have [address] Holbrook Day #:: 1 Subjective <James Jackman MD - Last Filed: 08/04/20 06:22> Fang is a 34 y/o female who is POD #1 following RCS at 36-3/7 WGA. She reports feeling well overall this morning. Endorses minimal abdominal cramping and pain well managed on analgesics. Voiding via Tariq catheter right now, which is draining yellow urine. Tolerating meals overnight and able to ambulate some. Not yet passing gas or bowel movements. Has some persistent lochia with some improvement this morning. Currently breast feeding. Review of Systems Denies fever, chills, sweats Denies shortness of breath, difficulty breathing, chest pain, palpitations, chest pressure. Denies breast pain. Denies dysuria. Denies headache or changes in vision. Physical Exam <James Jackman MD - Last Filed: 08/04/20 06:22> General: Alert, oriented. No acute distress. Cardiac: Regular rate and rhythm, no murmurs/rubs/gallops. Respiratory: Clear to auscultation bilaterally a/p, no wheezes/rales/rhonchi. No increased work of breathing. Symmetrical chest rise. No respiratory distress. Abdomen: Soft, nontender, nondistended. Bowel sounds present. Uterus: Uterine fundus firm, palpable 1 cm below umbilicus. Surgical scar clean and healing well. Lower Extremities: No lower extremity edema or swelling. No deep calf pain. Ho man's negative bilaterally. Results & Data ([facility]) <James Jackman MD - Last Filed: 08/04/20 06:22> Vital Signs (Past 12 Hours) Vital Signs Temp Pulse Resp BP Pulse Ox Pulse Ox 08/04/20 04:40 36.7 C 87 18 108/65 96 08/04/20 04:00 18 94 08/04/20 03:00 18 96 08/04/20 02:00 18 94 08/04/20 01:00 18 94 08/04/20 00:00 18 98 08/03/20 23:45 36.3 C L 76 18 100/67 98 08/03/20 23:00 18 98 08/03/20 22:03 18 96 08/03/20 21:02 18 97 08/03/20 20:00 18 98 08/03/20 19:25 36.5 C 87 18 120/74 98 98 08/03/20 18:16 18 99 08/03/20 17:05 18 96 <Janessa Holbrook MD - Last Filed: 08/04/20 06:45> Co-Signing Physician Notes I have reviewed the resident's note and examined the patient myself, and agree with the note above. Resident Activity Tracking <James Jackman MD - Last Filed: 08/04/20 06:22> Resident Involvement: Resident Care Provided Care Provided: Adult Hospital Medicine and OB Delivery
[2020-08-04] MEDS ORDERED: diphenhydrAMINE 50 MG/ML VIAL IV PRN (06:41)
[2020-08-04] MEDS ORDERED: oxyCODONE/ACETAMINOPHEN 5mg/325mg TAB PO PRN (06:41)
[2020-08-04] MEDS ORDERED: KETOROLAC 30 MG/ML VIAL IV PRN (06:41)
[2020-08-04] MEDS ORDERED: diphenhydrAMINE Capsule 25 MG CAP PO PRN (06:41)
[2020-08-04 06:52] LABS: Basophils # (auto) 0.01 K/uL (0-0.2); Basophils % (auto) 0.1 %; Eosinophils # (auto) 0.04 K/uL (0-0.5); Eosinophils % (auto) 0.3 %; Hemoglobin 9.3 g/dL (12.0-16.0); Immature Granulocytes # (auto) 0.11 K/uL (0.00-0.02); Immature Granulocytes % (auto) 0.7 %; Lymphocytes # (auto) 1.75 K/uL (1.2-3.4); Lymphocytes % (auto) 11.9 %; Mean Corpuscular Hemoglobin 27.3 pg (25-34); Mean Corpuscular Hgb Conc 32.1 g/dL (32-36); Mean Platelet Volume 10.3 fL (7.4-10.4); Monocytes # (auto) 1.19 K/uL (0.11-0.59); Monocytes % (auto) 8.1 %; Neutrophils # (auto) 11.57 K/uL (1.4-6.5); Neutrophils % (auto) 78.9 %; Platelet Count 168 K/uL (130-400); RDW Coefficient of Variation 14.7 % (11.5-14.5); Red Blood Count 3.41 M/uL (4.2-5.4); White Blood Count 14.67 K/uL (4.8-10.8)
[2020-08-04] MEDS: SIMETHICONE 80 MG CHEW PO SCH ×4 (08:33→21:05)
[2020-08-04] MEDS: DOCUSATE SODIUM 100 MG CAP PO SCH ×2 (08:33→21:05)
[2020-08-04] MEDS: IBUPROFEN 600 MG TAB PO PRN ×2 (08:33→18:05)
[2020-08-04] MEDS: FERROUS SULFATE 325 MG TAB PO SCH (08:33)
[2020-08-04] MEDS: PRENATAL VITAMIN 1 TAB PO SCH (08:33)
[2020-08-04] MEDS ORDERED: NON-FORMULARY MEDICATION (Prenat.Vits,Cal,Min-Iron-Folic Tablet) PO SCH (09:00)
[2020-08-04] MEDS ORDERED: OMEGA-3 (PURIFIED FISH OIL) 1 GM CAP PO SCH (09:00)
[2020-08-04] MEDS ORDERED: bisacodyL 5 MG TABEC PO SCH (20:00)
--- NOTE | 2020-08-05 06:47 | Obstetrical Progress Note ---
Date of Service August 05, 2020 Assessment & Plan (1) examination following delivery: doing well, ready for d/[place] [facility] [place] reviewed, f/u 6wks ppcheck. Day #:: 2 Subjective Ambulation: ambulating normally Voiding: no voiding problems Passing Gas:: Yes Diet Tolerance:: regular diet Lochia:: Small Feeding Type:: breast feeding (pumping) baby [place] [facility] [place], has chest tube. pt doing well, no pain control issues, does want to go home today, hgb pending. Physical Exam Constitutional WD/WN, vitals as above Respiratory normal respiratory effort, lungs clear to auscultation Cardiovascular Rate/Rhythm: regular rate and regular rhythm Gastrointestinal (Abdomen) Percussion/Palpation: abdomen soft; abdomen nontender ff 2 down, incision c/d/i with dermabond Musculoskeletal nt calves Neurologic grossly normal Psychiatric A+Ox3, euthymic affect Results & Data ([facility]) Vital Signs (Past 12 Hours) Vital Signs Temp Pulse Resp BP Pulse Ox 08/04/20 23:05 98.2 F 90 18 105/66 98
[2020-08-05 07:07] LABS: Hematocrit (blood only) 32.6 % (37-47); Hemoglobin 10.1 g/dL (12.0-16.0)
[2020-08-05] MEDS: IBUPROFEN 600 MG TAB PO PRN (07:40)
[2020-08-05] MEDS: DOCUSATE SODIUM 100 MG CAP PO SCH (07:40)
[2020-08-05] MEDS: FERROUS SULFATE 325 MG TAB PO SCH (07:40)
[2020-08-05] MEDS: SIMETHICONE 80 MG CHEW PO SCH (07:40)
[2020-08-05] MEDS: PRENATAL VITAMIN 1 TAB PO SCH (07:40)
[2020-08-05] MEDS ORDERED: bisacodyL 10 MG SUPP PR PRN (13:11)
--- NOTE | 2020-08-06 12:51 | Discharge Summary ---
Date of Service August 06, 2020 Discharge Data Consultations 08/03/20 07:42 Consult Anesthesiology Stat Procedures Performed Operation Date: 08/03/20 09:30 Actual Procedures p Section in LD with the of a live male child at 1242. - Janessa Holbrook MD Hospital Course (1) Previous delivery affecting : Patient admitted for planned early section due to history of prior T-incision at delivery. She received BMTZ 24 and 48 hours prior to delivery. Her surgery was uncomplicated. She was discharged to home after her postoperative recovery period with the usual plan for 6 week follow up. Coding Level of Care Code None Diagnoses Previous delivery affecting O34.219
== END 2020-08-05 09:55 | disposition home or self-care (01) | DRG 788 ==
LOC: 4S1 07:32 → EDSTATUS 09:50 → 4S2 16:13